=== PATIENT | male | born 1940 | race Caucasian/White ===

== ENCOUNTER → 2017-01-27 | Outpatient (CLI) | payer MEDICARE, OTHER ==
[2017-01-27 12:36] LABS: CH 29.9; CHCM 33.7; HCT 41.8 % (39.0-53.0); HDW 2.52; HGB 14.3 gm/dL (13.0-17.5); MCH 30.5 pg (25.0-35.0); MCHC 34.2 g/dL (31.0-37.0); MCV 89.2 fL (80.0-100.0); Mean Platelet Volume 7.8; RBC 4.68 m/uL (4.30-5.90); RDW 14.4 % (11.5-15.5); WBC 7.2 k/uL (3.8-10.6)
[2017-01-27 14:12] LABS: Potassium 5.3 mmol/L (3.5-5.1)
== END | disposition home or self-care (01) ==
LOC: LABPAT 11:52
PROVIDERS: ATTEND Internal Medicine Interventional Cardiology
DX: Z01.812 Encounter for preprocedural laboratory examination (principal); I73.9 Peripheral vascular disease, unspecified
CPT/HCPCS: 36415; 80051; 82565; 84520; 85027

== ENCOUNTER 2017-02-10 09:20 | Day surgery (SDC) | payer MEDICARE, OTHER ==
[2017-02-06 08:54] VITALS: BMI 35.5
[~2017-02-10 09:20] MED LIST: ALPRAZolam 0.25 MG TAB PO PRN; ASPIRIN 325 MG TAB PO STA
[2017-02-10 10:03] VITALS: RESP 18
[2017-02-10] MEDS: SODIUM CHLORIDE 0.9% 1,000 ML IV SCH ×2 (10:04→16:01)
[2017-02-10] MEDS ORDERED: MIDAZOLAM 2 MG/2 ML VIAL IV ONE (12:54)
[2017-02-10] MEDS ORDERED: LIDOCAINE 2% INJ 20 MG/ML SQ ONE (12:56)
[2017-02-10] MEDS ORDERED: IODIXANOL 320 MG/ML 100 ML INTRAARTER ONE (13:23)
[2017-02-10] MEDS ORDERED: SODIUM CHLORIDE 0.9% 1,000 ML IV SCH (13:30)
--- NOTE | 2017-02-10 14:03 | AN ---
ANGIOGRAPHY REPORT DATE OF SERVICE: 02/10/2007 PERFORMING PHYSICIAN: Rene Lozada MD, Psychiatry Adult Physician. PROCEDURE PERFORMED: 1. Abdominal aortogram. 2. Bilateral lower extremity runoff. 3. Create a measurement across the right external iliac artery. INDICATION: This is a pleasant 76-year-old gentleman who is known to have severe underlying peripheral arterial disease and was experiencing bilateral lower extremity intermittent claudication. He was brought today to undergo a peripheral angiogram. APPROACH: Right common femoral artery. COMPLICATION: None. LEVEL OF SEDATION: Moderate with sedation length for 20 minutes. PROCEDURE DESCRIPTION: After obtaining an informed consent, the patient was brought to the [facility]. The right common femoral artery was cannulated using micropuncture technique, the micropuncture wire passed easily. Then I placed a 5-Mexican sheath. Subsequently, I did an abdominal aortogram and bilateral lower extremity runoff using 5-Mexican pigtail catheter which was initially placed at the level of the renal arteries and it was pulled into above the bifurcation of the aorta, the right and left common iliac arteries. Also, I did a gradient measurement across the right external iliac artery. The procedure was completed without any complication. SELECTIVE PERIPHERAL ANGIOGRAM: 1. The aorta appeared to be calcified with mild to moderate diffuse disease. 2. COMMON ILIAC ARTERIES: The right and left common iliac arteries appeared to have mild disease only and they are calcified. 3. EXTERNAL ILIAC ARTERIES: The right external iliac artery appeared to have a lesion in the range of 50% to 60% but with a gradient across it. The lesion does not seem to be ischemic. The left external iliac artery is stented, at the stent is patent. 4. INTERNAL ILIAC ARTERIES: The right and left internal iliac arteries are angiographically normal. 5. COMMON FEMORAL ARTERIES: The right and left common femoral arteries appear to have mild to moderate diffuse disease. 6. SFA: The right SFA is occluded and long segment from the ostium and reconstitute by the popliteal. The left SFA appeared to have mild to moderate diffuse disease. 7. BELOW THE KNEE: The arteries below the knee are poorly visualized. 8. 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 CONCLUSION: 1. Mild to moderate aortoiliac disease. 2. Severe femoral-popliteal disease with occluded right SFA and to moderate diffuse left SFA. 3. Poorly visualized arteries below the knees bilaterally. POSTPROCEDURE MANAGEMENT: Maximize medical treatment and follow up with the patient. MMODL / IJN: [id number] /
[2017-02-10 16:19] VITALS: TEMP 97.7
[2017-02-10 19:20] VITALS: BP 124/53; PULSE 66
--- NOTE | 2017-02-11 12:54 | IR ---
EXAMINATION TYPE: IR angio abdominal w runoff DATE OF EXAM: 02/10/2017 COMPARISON: NONE HISTORY: Peripheral vascular occlusive disease. Fluoroscopy was provided to the referring clinician. See dictated report from cardiology.
== END 2017-02-10 20:58 | disposition home or self-care (01) ==
LOC: CATHCVL 09:20 → 3OBS 15:44 → CATHCVL 20:58
PROVIDERS: ATTEND Internal Medicine Interventional Cardiology
DX: I70.213 Atherosclerosis of native arteries of extremities with intermittent claudication, bilateral legs (principal); I25.10 Atherosclerotic heart disease of native coronary artery without angina pectoris; I10 Essential (primary) hypertension; Z87.891 Personal history of nicotine dependence; E78.5 Hyperlipidemia, unspecified; Z82.49 Family history of ischemic heart disease and other diseases of the circulatory system; Z79.82 Long term (current) use of aspirin; Z79.899 Other long term (current) drug therapy; Z88.0 Allergy status to penicillin
CPT/HCPCS: 36200; 75625; 75716; 84132; 99152; C1894; C1769 ×4; J2001; J2250; Q9967

== ENCOUNTER → 2017-04-08 | Outpatient (CLI) | payer MEDICARE, OTHER ==
[2017-04-08 10:56] LABS: CH 29.1; HCT 43.3 % (39.0-53.0); HGB 14.3 gm/dL (13.0-17.5); MCH 30.3 pg (25.0-35.0); MCHC 33.1 g/dL (31.0-37.0); MCV 91.5 fL (80.0-100.0); Mean Platelet Volume 8.5; RBC 4.73 m/uL (4.30-5.90); RDW 15.2 % (11.5-15.5); WBC 7.1 k/uL (3.8-10.6)
== END | disposition home or self-care (01) ==
LOC: LABPAT 10:00
PROVIDERS: ATTEND Internal Medicine Interventional Cardiology
DX: Z01.812 Encounter for preprocedural laboratory examination (principal); I25.10 Atherosclerotic heart disease of native coronary artery without angina pectoris
CPT/HCPCS: 36415; 80051; 82565; 84520; 85027